=== PATIENT | male | born 1990 | race Two or more races ===

== ENCOUNTER 2018-06-06 21:15 | Emergency (ER) | payer OTHER ==
[~2018-06-06] VITALS: Ht 177.8 cm; Wt 90.7 kg
== END 2018-06-07 00:21 | disposition home or self-care (01) ==
LOC: ER 21:15
DX: S62.617A Displaced fracture of proximal phalanx of left little finger, initial encounter for closed fracture (principal); W50.0XXA Accidental hit or strike by another person, initial encounter; Y93.89 Activity, other specified; Y92.89 Other specified places as the place of occurrence of the external cause; Y99.8 Other external cause status

== ENCOUNTER 2018-07-03 09:04 | Outpatient (CLI) | payer OTHER | END 2018-07-03 09:06 | disposition home or self-care (01) | LOC: RAD 09:04 | DX: M79.642 Pain in left hand (principal) ==